=== PATIENT | male | born 1980 | race Two or more races ===

== ENCOUNTER 2021-03-25 10:17 | Outpatient (CLI) | payer OTHER | END 2021-03-25 10:18 | disposition home or self-care (01) | LOC: LAB 10:17 | PROVIDERS: ATTEND Orthopaedic Surgery | DX: D64.9 Anemia, unspecified (principal); E88.9 Metabolic disorder, unspecified; D68.8 Other specified coagulation defects; N39.0 Urinary tract infection, site not specified; E83.42 Hypomagnesemia; E03.9 Hypothyroidism, unspecified; U07.1 COVID-19; I10 Essential (primary) hypertension; Z76.89 Persons encountering health services in other specified circumstances; Z13.1 Encounter for screening for diabetes mellitus ==

== ENCOUNTER 2021-04-01 08:04 | Day surgery (SDC) | payer OTHER | END 2021-04-01 15:45 | disposition home or self-care (01) | LOC: CIR.AMB 08:04 | PROVIDERS: ATTEND Orthopaedic Surgery | DX: M23.251 Derangement of posterior horn of lateral meniscus due to old tear or injury, right knee (principal); M65.9 Synovitis and tenosynovitis, unspecified; Z88.6 Allergy status to analgesic agent; Z87.891 Personal history of nicotine dependence ==